=== PATIENT | male | born 1980 | race Caucasian/White ===

== ENCOUNTER 2024-09-06 20:46 | Emergency (ER) | payer MEDICAID ==
[~2024-09-06] VITALS: Ht 165.1 cm; Wt 56.0 kg
[2024-09-06 20:54] VITALS: O2SAT 100
[2024-09-07] MEDS: HYDROCODONE/ACETAMINOPHEN 5/325MG TABLET PO ONE (00:02)
[2024-09-07] MEDS ORDERED: IBUP-2029 MT (01:00)
[2024-09-07 03:00] VITALS: BP 121/77; PULSE 84; RESP 18; TEMP 36.7; O2SAT 100
== END 2024-09-07 03:00 | disposition home or self-care (01) ==
LOC: ER 20:46
DX: S60.221A Contusion of right hand, initial encounter (principal); Z98.890 Other specified postprocedural states; W45.8XXA Other foreign body or object entering through skin, initial encounter; Y93.89 Activity, other specified; Y92.89 Other specified places as the place of occurrence of the external cause; Y99.8 Other external cause status
CPT/HCPCS: 29125; 73130; 99283

== ENCOUNTER 2024-10-13 00:43 | Emergency (ER) | payer MEDICAID ==
[~2024-10-13] VITALS: Ht 162.6 cm; Wt 59.0 kg
[~2024-10-13 00:43] MED LIST: IBUP-2029 MT
[2024-10-13 01:00] VITALS: O2SAT 95
[2024-10-13 02:33] VITALS: BP 109/60; PULSE 105; RESP 16; TEMP 36.6; O2SAT 98
[2024-10-13] MEDS: ACETAMINOPHEN 325MG TABLET PO ONE (04:27)
[2024-10-13] MEDS ORDERED: TOPUD MT (04:48)
== END 2024-10-13 05:14 | disposition home or self-care (01) ==
LOC: ER 00:43
DX: S62.91XA Unspecified fracture of right hand, initial encounter for closed fracture (principal); X58.XXXA Exposure to other specified factors, initial encounter; Y93.89 Activity, other specified; Y92.89 Other specified places as the place of occurrence of the external cause; Y99.8 Other external cause status
CPT/HCPCS: 73130; 99283